=== PATIENT | female | born 1985 | race Caucasian/White ===

== ENCOUNTER → 2016-10-01 | Outpatient (CLI) | payer OTHER ==
--- NOTE | 2016-10-01 10:28 | ECHOF ---
Referral Reason:R94.31 abn ekg MEASUREMENTS -------- HEIGHT: 172.7 cm WEIGHT: 93.0 kg BP: IVSd: 1.1 cm (0.6 - 1.1) LVIDd: 4.5 cm (3.9 - 5.3) LVPWd: 1.2 cm (0.6 - 1.1) IVSs: 1.3 cm LVIDs: 3.4 cm LVPWs: 1.5 cm LA Diam: 3.7 cm (2.7 - 3.8) LAESV Index (A-L): 25.91 ml/m Ao Diam: 3.1 cm (2.0 - 3.7) AV Cusp: 1.8 cm (1.5 - 2.6) LA Diam: 3.9 cm (2.7 - 3.8) MV EXCURSION: 18.395 mm (> 18.000) MV EF SLOPE: 104 mm/s (70 - 150) EPSS: 0.4 cm MV E Jose: 0.96 m/s MV DecT: 152 ms MV A Jose: 0.63 m/s MV E/A Ratio: 1.51 RAP: 5.00 mmHg RVSP: 19.13 mmHg FINDINGS -------- Sinus rhythm. This was a technically good study. LV size, wall thickness and systolic function are normal, with an EF greater than 55%. The right ventricle is normal in size. Normal LA size by volume 22+/-6 ml/m2. The right atrial size is normal. The aortic valve is trileaflet, and appears structurally normal. No aortic stenosis or regurgitation. Mild mitral regurgitation is present. Mild tricuspid regurgitation present. There is no evidence of pulmonary hypertension. The right ventricular systolic pressure, as measured by Doppler, is 19.13mmHg. Trace/mild (physiologic) pulmonic regurgitation. The aortic root size is normal. There is no pericardial effusion. CONCLUSIONS -------- 1. LV size, wall thickness and systolic function are normal, with an EF greater than 55%. 2. The aortic valve is trileaflet, and appears structurally normal. No aortic stenosis or regurgitation. 3. Mild mitral regurgitation is present. 4. Mild tricuspid regurgitation present. 5. There is no evidence of pulmonary hypertension. 6. The right ventricular systolic pressure, as measured by Doppler, is 19.13mmHg. 7. The aortic root size is normal. 8. There is no pericardial effusion. SOFTWARE DEPLOYMENT ENGINEER: La Nena Franklin RDCS
== END | disposition home or self-care (01) ==
LOC: RADECHMAIN 08:26
PROVIDERS: ATTEND Family Medicine
DX: I34.0 Nonrheumatic mitral (valve) insufficiency (principal); I07.1 Rheumatic tricuspid insufficiency
CPT/HCPCS: 93306

== ENCOUNTER → 2020-12-13 | Outpatient (CLI) | payer OTHER ==
--- NOTE | 2020-12-16 13:52 | MM ---
Reason for exam: screening (asymptomatic). Baseline mammogram. History: Family history of breast cancer in paternal aunt at age 56. Took hormonal contraceptives for 13 years beginning at age 18. Took estrogen for 2 months. Physical Findings: Nurse did not find any significant physical abnormalities on exam. MG Screening Mammo w CAD Bilateral CC and MLO view(s) were taken. There are scattered fibroglandular densities. There is no discrete abnormality. These results were verbally communicated with the patient and result sheet given to the patient on 12/13/20. ASSESSMENT: Negative, BI-RAD 1 RECOMMENDATION: Routine screening mammogram of both breasts at age 39.
== END | disposition home or self-care (01) ==
LOC: RADMAMWWP 10:09
PROVIDERS: ATTEND Family Medicine
DX: Z12.31 Encounter for screening mammogram for malignant neoplasm of breast (principal); Z80.3 Family history of malignant neoplasm of breast
CPT/HCPCS: 77067

== ENCOUNTER 2022-04-30 05:31 | Day surgery (SDC) | payer OTHER ==
[2022-04-28 08:46] VITALS: BMI 39.2
[~2022-04-30 05:31] MED LIST: DEXAMETHASONE SOD PHOSPHATE 4 MG/ML 1 ML VIAL IV ONE; LACTATED RINGERS 1,000 ML IV SCH; ONDANSETRON 4 MG/2 ML VIAL IVP ONE; Pre Op ABX Message 1 EACH MISC MISCELLANE ONE
[2022-04-30] MEDS ORDERED: MIDAZOLAM 2 MG/2 ML VIAL IVP ONE (06:45)
[2022-04-30] MEDS ORDERED: fentaNYL (PF) 50 MCG/ML 2 ML AMP IV PRN (07:00)
[2022-04-30] MEDS ORDERED: PROPOFOL 10 MG/ML 20 ML VIAL IV ONE (07:07)
[2022-04-30] MEDS ORDERED: HYDROmorphone (PF) 1 MG/ML ONE (07:07)
[2022-04-30] MEDS ORDERED: LIDOCAINE 2% INJ 20 MG/ML (2 ML VIAL) ONE (07:07)
[2022-04-30] MEDS ORDERED: fentaNYL (PF) 50 MCG/ML 2 ML AMP ONE (07:07)
[2022-04-30] MEDS ORDERED: ROPIVACAINE 5 MG/ML 30 ML VIAL ONE (07:07)
[2022-04-30] MEDS ORDERED: KETOROLAC 15 MG/ML 1 ML VIAL ONE (07:07)
[2022-04-30] MEDS ORDERED: SUCCINYLCHOLINE CHLORIDE 200 MG/10 ML VIAL IV ONE (07:07)
[2022-04-30] MEDS ORDERED: MIDAZOLAM 2 MG/2 ML VIAL ONE (07:07)
[2022-04-30] MEDS ORDERED: DEXAMETHASONE SOD PHOSPHATE 4 MG/ML 1 ML VIAL ONE (07:07)
[2022-04-30] MEDS ORDERED: LACTATED RINGERS 1,000 ML IV ONE ×2 (08:17)
[2022-04-30 09:25] VITALS: TEMP 97
[2022-04-30] MEDS ORDERED: HYDROmorphone 0.5 MG/0.5 ML SYRINGE IVP ONE (09:35)
[2022-04-30] MEDS ORDERED: HYDROcodone/APAP 7.5-325MG 1 EACH TAB ONE (10:37)
[2022-04-30] MEDS ORDERED: ONDANSETRON 4 MG/2 ML VIAL ONE (10:37)
[2022-04-30 11:41] VITALS: BP 129/78; PULSE 68; RESP 16
--- NOTE | 2022-04-30 12:12 | OP ---
OPERATIVE REPORT PREOPERATIVE DIAGNOSES: 1. Left knee anterior cruciate ligament rupture. 2. Left knee medial meniscus tear. POSTOPERATIVE DIAGNOSES: 1. Left knee anterior cruciate ligament rupture. 2. Left knee medial meniscus tear. 3. Left knee thickened infrapatellar and medial shelf plica. PROCEDURES PERFORMED: 1. Left knee anterior cruciate ligament reconstruction with hamstring autograft. 2. Left knee arthroscopic debridement of medial meniscus tear. 3. Left knee arthroscopic lysis of adhesions. BOX LOADER: Braxton Mccabe PA-C ANESTHESIA: General endotracheal. ESTIMATED BLOOD LOSS: Minimal. TOURNIQUET: Tourniquet time was 48 minutes at 250 mmHg. DRAINS: None. COMPLICATIONS: None apparent. DISPOSITION: Postanesthesia care unit. INDICATIONS: Pallavi is a very pleasant 36-year-old female, who injured her left knee. Physical examination and MRI consistent with a complete rupture of the anterior cruciate ligament and medial meniscus tear. with regard to treatment options. At this point, she does wish to proceed with operative intervention. The risks were explained to the patient, which include, but are not limited to risk of infection, nerve damage, bleeding, pain, instability, deep vein thrombosis, which could lead to fatal pulmonary embolism and graft re-rupture. The patient understands these risks and wished to proceed with surgical procedure. Examination under anesthesia: Range of motion; right full, left full. Effusion; right none, left none. James's; right normal with good end-point, left increased 5 mm with soft end-point. Pivot shift; right grade 0, left grade 1. Posterior drawer; right good end-point, left with good end point. Varus laxity; right none, left none. Valgus laxity; right none, left none. External rotation; right normal, left normal. ARTHROSCOPIC FINDINGS: Suprapatellar pouch was normal. Medial gutter, thickened medial shelf plica. There was also a very large meniscus flap, which had been rotated medially into the medial gutter. Lateral gutter was normal. Patella, normal chondral surfaces. Trochlea, grade 1 changes in the central aspect of the trochlea. Patellar tracking is normal. Medial femoral condyle, grade 1 changes. Medial tibial plateau, normal chondral surfaces. Medial meniscus; complex, large flap tear of the posterior horn and middle body of the medial meniscus. The flap had been completely dislocated posteriorly and was flipped medially into the medial gutter. Lateral femoral condyle, normal chondral surfaces. Lateral tibial plateau, normal chondral surfaces. Lateral meniscus was normal. Anterior cruciate ligament, complete midsubstance rupture of the anterior cruciate ligament. Posterior cruciate ligament was normal. Infrapatellar notch with thickened infrapatellar plica. DESCRIPTION OF PROCEDURE: The patient was identified in preoperative holding area. Surgical site was marked by both the patient and myself. She was given 2 g of Ancef IV for prophylactic purposes. She was then transported to the operative suite. She was placed supine on the operating room table. General anesthetic was then administered and dosed apparent complication. An examination under anesthesia was then performed of both knees. The findings were as noted above. The tourniquet was then placed high on the left upper thigh, well-padded in preparation for surgery. The patient's left lower extremity was then prepped and draped in usual sterile fashion. Standard surgical pause was undertaken to ensure that we were operating the correct site and appropriate preoperative antibiotics had been given. All staff in the room were in agreement and we proceeded. The knee was then inflated with 120 mL sterile saline solution. This was done to gradually distend the joint. A standard inferolateral portal was then made. A 30- degree arthroscope pump pressure was set to 60 mmHg and maintained at that level throughout the entire case. Next, utilizing an 18-gauge spinal needle inferomedial portal was made under direct visualization. A standard diagnostic performed. The findings were noted as above. Attention was drawn to the infrapatellar notch; very thickened infrapatellar plica as well as thickened medial shelf plica. These were released with a biter and debrided back to stable tissue utilizing synovial shaver. Hemostasis was achieved with the ArthroCare wand. Attention was drawn to the medial compartment; very complex tear of the posterior horn and midbody of the medial meniscus. This was quite macerated and unstable and deemed irreparable. debrided with a combination of biter and synovial shaver back to stable tissue. Approximately 50% of the posterior horn and middle body of the medial meniscus remained intact after debridement. The arthroscope was then placed medial to the posterior cruciate ligament through the notch in the posteromedial compartment of the knee. There were no residual flap, tears, or loose bodies noted. Posterior root attachments were carefully inspected and found to be intact. At this point, we proceeded with harvesting of the hamstring tendons. The arthroscopic equipment was removed from the knee. The leg was then exsanguinated with an Esmarch the tourniquet was then inflated to 250 mmHg. The small longitudinal incision was then made approximately 1.5 cm medial to the tibial tubercle. Dissection was carried down through the subcutaneous tissues until the sartorius tendon was identified. The sartorius was then incised using an L-shaped incision. The sartorius tendon was then retracted, and the gracilis and semitendinosus tendons were identified. These tendons were then tagged with 2-0 Vicryl sutures. The tendon was then released from their insertion soft tissue attachments using a blunt technique as well as using scissors. The tendons were then harvested using a closed tendon stripper. The tendons were then taken to back table where muscle fibers were scraped off the tendons. The ends of the tendons were then whip-stitched using a #2 Orthocord suture. a 4-stranded hamstring graft. The graft diameter was measured at 9 mm. The certified surgical tech/first assistant was critical at this portion of the case. They provided adequate exposure harvest the hamstring tendons. In addition, the assistant business manager completed the graft preparation allowing for decreased operating time, further enhancing the safety of the procedure. Attention was then returned to the knee. The remnants of the anterior cruciate ligament were then debrided utilizing arthroscopic shaver. The Lyles ACL guide was then placed into the knee with the tip held flush against the lateral wall of the notch. The knee was then brought into full extension and the tibial guide pin was drilled from the anteromedial tibia into the knee. The knee was then flexed and the pin position was arthroscopically assessed to ensure that was in the proper position. The tibial tunnel was then created using cannulated reamer equal to the size of the hamstring graft, which was 9 mm. A minimal lateral notchplasty was then performed utilizing synovial shaver in a soheila-type fashion. The femoral origin of the anterior cruciate ligament was clearly identified. The femoral guide pin was then placed at the origin of the anterior cruciate ligament with wall thickness of 1 mm. Femoral tunnel was then created with a cannulated reamer to the depth of 20 mm. The size of the reamer was again the same size of the hamstring graft, which was 9 mm. Next, a 4.5-mm cannulated drill was used to penetrate the lateral femoral cortex. The Biomet ToggleLoc femoral fixation device was then opened. The graft was placed through the closed loop of the device. A Beath pin was then passed through the tibial and femoral tunnels and out through the soft tissues of the lateral thigh. The lead sutures of the fixation device were then placed fixation device and advanced through the tunnels and soft tissues of the lateral thigh. The device was advanced through the tunnels and locked on the lateral femoral cortex. The closed loop was then shortened and the graft was advanced to the base of the femoral tunnel. Femoral fixation was excellent. The graft was then cycled 30 times. No impingement was noted on intercondylar roof or lateral intercondylar wall. Tibial fixation was then achieved using a bioabsorbable Intrafix screw and sheath. This was performed at 20 degrees of flexion with a posterior drawer force applied to the tibia. This resulted in excellent fixation. The arthroscope was placed back into the knee and the graft again visualized. Tension of the graft seemed to be excellent. No impingement was noted. A full range of motion was noted. The James test noted to be normal. At this point, the arthroscopic equipment was removed from the knee. The tourniquet was deflated. Total tourniquet time for the procedure was 48 minutes at 250 mmHg. Next, the sartorius was closed with 2-0 Vicryl interrupted suture. The subcutaneous tissue was closed with 2-0 Vicryl interrupted suture and the skin was closed with 3-0 nylon interrupted suture. The arthroscopic portals were closed with 3-0 nylon interrupted suture. Sterile compressive dressing was then applied. The patient was placed into a hinged knee brace locked in full extension. The patient tolerated the procedure well and was transferred to the recovery room in good condition. REHAB PLAN: Routine anterior cruciate ligament reconstruction rehab protocol. MMODL / IJN: [id number] /
--- NOTE | 2022-04-30 18:28 | P.ANPRN ---
Procedure Note - Anesthesia - Nerve Block Performed Left Adductor Canal Single Time Out Performed: Yes Date of Procedure: 04/30/22 Procedure Start Time: 06:44 Procedure Stop Time: 06:49 Location of Patient: PreOp Indication: Acute Post-Operative Pain, Requested by Surgeon Sedation Type: Sedate with meaningful contact maintained Preparation: Sterile Prep Position: Supine Needle Types: Pajunk Needle Gauge: 21 Ultrasound used to visualize needle placement: Yes Ultrasound used to observe medication spread: Yes Blood Aspirated: No Pain Paresthesia on Injection Noted: No Resistance on Injection: Normal Image Stored and Saved: Yes Events: Uneventful and Well Tolerated (Ropivacaine 0.5% 20 mL plus dexamethasone 4 mg)
== END 2022-04-30 11:40 | disposition home or self-care (01) ==
LOC: OR 05:31
PROVIDERS: ATTEND Orthopaedic Surgery Sports Medicine
DX: S83.512A Sprain of anterior cruciate ligament of left knee, initial encounter (principal); S83.232A Complex tear of medial meniscus, current injury, left knee, initial encounter; M67.52 Plica syndrome, left knee; G89.18 Other acute postprocedural pain; I10 Essential (primary) hypertension; F17.200 Nicotine dependence, unspecified, uncomplicated; Z86.711 Personal history of pulmonary embolism; Z86.718 Personal history of other venous thrombosis and embolism; Z88.5 Allergy status to narcotic agent; X50.9XXA Other and unspecified overexertion or strenuous movements or postures, initial encounter; Y93.64 Activity, baseball; Z79.82 Long term (current) use of aspirin; Z79.01 Long term (current) use of anticoagulants; Z79.899 Other long term (current) drug therapy
CPT/HCPCS: 64447; 76942; 29888; 29881; C1713; J2250; J0330; J1100; J0690; J2405; J3010; J1170 ×2; J2795; J1885; J2704; J2001

== ENCOUNTER → 2024-09-22 | Outpatient (CLI) | payer OTHER ==
--- NOTE | 2024-09-28 16:36 | MM ---
Reason for Exam: Screening (asymptomatic). Last mammogram was performed 3 year(s) and 9 month(s) ago. Patient History: Menarche at age 15. First Full-Term at age 23. Patient has history of breast feeding. Estrogen for 2 months. Hormonal Contraceptives, from age 18 until age 25. Paternal aunt had breast cancer, age 56. Last menstrual period: 08/21/2024 Risk Values: Christine 5 year model risk: 0.5%. NCI Lifetime model risk: 8.3%. Prior Study Comparison: 12/13/2020 Bilateral Screening Mammogram, [facility]. Tissue Density: The breasts are almost entirely fatty. Findings: Analyzed By CAD. There is no suspicious group of microcalcifications or new suspicious mass in either breast. Overall Assessment: Negative, BI-RAD 1 Management: Screening Mammogram of both breasts in 1 year. . Patient should continue monthly self-breast exams. A clinical breast exam by your physician is recommended on an annual basis. This exam should not preclude additional follow-up of suspicious palpable abnormalities. Note on Christine scores and lifetime risk: 1. A Christine score greater than 3% is considered moderate risk. If this is the case, consider specialist referral to assess eligibility for a risk reducing agent. 2. If overall lifetime risk for the development of breast cancer is 20% or higher, the patient may qualify for future screening with alternating mammogram and breast MRI. [facility], , 09/28/2024 4:33 PM. Electronically signed and approved by: Jose Santamaria M.D. Radiologist
== END | disposition home or self-care (01) ==
LOC: RADMAMWWP 09:52
PROVIDERS: ATTEND Family Medicine
DX: Z12.31 Encounter for screening mammogram for malignant neoplasm of breast (principal); Z80.3 Family history of malignant neoplasm of breast; R92.313 Mammographic fatty tissue density, bilateral breasts
CPT/HCPCS: 77067